=== PATIENT | male | born 1950 | race Caucasian/White ===

== ENCOUNTER 2016-10-20 08:16 | Outpatient (CLI) | payer BC, MEDICARE ==
[~2016-10-20] VITALS: Ht 190.5 cm; Wt 99.8 kg
[~2016-10-20 08:16] MED LIST: BUPR300T34 PO; NS 1,000 ML IV SCH; PANT40TA2 PO; RANI300T PO; VALS320T3 PO; ZOLO50TA PO
[2016-10-20] MEDS ORDERED: LIDOCAINE 2% INJ 100 MG/5 ML SDV (FOR ANES.) As Ordered ONE (08:46)
[2016-10-20] MEDS ORDERED: PROPOFOL 200 MG/20 ML VIAL As Ordered ONE (08:46)
--- NOTE | 2016-10-20 09:41 | ROOR ---
Patient Name: Kory Russell Procedure Date: 10/20/2016 9:29 AM Date of : 1950 Age: 66 Room: [id number] Gender: Male Note Status: Finalized Procedure: Upper GI endoscopy Indications: Surveillance procedure, Surveillance for malignancy due to personal history of Gutierrez's esophagus Providers: Kristopher ROJAS MD Referring MD: SHIRIN CARUSO JR, MD Requesting Provider: Medicines: Monitored Anesthesia Care Complications: No immediate complications. Procedure: Pre-Anesthesia Assessment: - The heart rate, respiratory rate, oxygen saturations, blood pressure, adequacy of pulmonary ventilation, and response to care were monitored throughout the procedure. The Endoscope was introduced through the mouth, and advanced to the second part of duodenum. The upper GI endoscopy was accomplished without difficulty. The patient tolerated the procedure well. Findings: Small Hiatal Hernia. The Z-line was variable. This was biopsied with a cold forceps for histology. The exam was otherwise without abnormality. Impression: - Small Hiatal Hernia. - Z-line variable. Biopsied. - The examination was otherwise normal. Recommendation: - Continue present medications. - The barretts esophagus (if any) is very minimal at best. I suggest follow up on this only on a PRN basis. Kristopher Rojas MD Kristopher ROJAS MD 10/20/2016 9:41:37 AM This report has been signed electronically. Number of Addenda: 0 Note Initiated On: 10/20/2016 9:29 AM Estimated Blood Loss: Estimated blood loss: none.
--- NOTE | 2016-10-20 10:00 | ROOR ---
Patient Name: Kory Russell Procedure Date: 10/20/2016 9:29 AM Date of : 1950 Age: 66 Room: [facility] Gender: Male Note Status: Finalized Procedure: Colonoscopy Indications: High risk colon cancer surveillance: Personal history of colonic polyps, Last colonoscopy: July 2011 Providers: Kristopher NICOLE MD Referring MD: SHIRIN CARUSO JR, MD Requesting Provider: Medicines: Monitored Anesthesia Care Complications: No immediate complications. Procedure: Pre-Anesthesia Assessment: - The heart rate, respiratory rate, oxygen saturations, blood pressure, adequacy of pulmonary ventilation, and response to care were monitored throughout the procedure. The Colonoscope was introduced through the anus and advanced to the cecum, identified by appendiceal orifice and ileocecal valve. The colonoscopy was performed without difficulty. The patient tolerated the procedure well. The quality of the bowel preparation was good. Findings: The perianal and digital rectal examinations were normal. Two sessile polyps were found in the ascending colon. The polyps were diminutive in size. A few medium-mouthed diverticula were found in the sigmoid colon. Small Internal Hemorrhoids. The exam was otherwise without abnormality on direct and retroflexion views. Impression: - Two diminutive polyps in the ascending colon. - Mild diverticulosis in the sigmoid colon. - Small Internal Hemorrhoids. - The examination was otherwise normal on direct and retroflexion views. - No specimens collected. Recommendation: - Repeat colonoscopy in 5 years for surveillance. Kristopher Nicole MD Kristopher NICOLE MD 10/20/2016 9:59:51 AM This report has been signed electronically. Number of Addenda: 0 Note Initiated On: 10/20/2016 9:29 AM Estimated Blood Loss: Estimated blood loss: none.
[2016-10-20 10:17] VITALS: BP 136/71
== END 2016-10-20 10:30 ==
LOC: M OPP 08:16
PROVIDERS: ATTEND Internal Medicine Gastroenterology
DX: Z12.11 Encounter for screening for malignant neoplasm of colon (principal); Z86.010 Personal history of colon polyps; D12.2 Benign neoplasm of ascending colon; K57.30 Diverticulosis of large intestine without perforation or abscess without bleeding; K22.70 Barrett's esophagus without dysplasia; K22.8 Other specified diseases of esophagus; K44.9 Diaphragmatic hernia without obstruction or gangrene; I10 Essential (primary) hypertension; F41.9 Anxiety disorder, unspecified; F32.9 Major depressive disorder, single episode, unspecified; G47.30 Sleep apnea, unspecified; Z79.899 Other long term (current) drug therapy

== ENCOUNTER → 2017-05-03 | Outpatient (REF) | payer BC, MEDICARE ==
[~2017-05-03] MED LIST changes: -NS 1,000 ML IV SCH
[2017-05-07 00:06] LABS: Lyme Disease IgG Ab 18 kDa Ban Absent (.); Lyme Disease IgG Ab 23 kDa Ban Absent (.); Lyme Disease IgG Ab 28 kDa Ban Absent (.); Lyme Disease IgG Ab 30 kDa Ban Present (.); Lyme Disease IgG Ab 39 kDa Ban Absent (.); Lyme Disease IgG Ab 41 kDa Ban Absent (.); Lyme Disease IgG Ab 45 kDa Ban Absent (.); Lyme Disease IgG Ab 58 kDa Ban Absent (.); Lyme Disease IgG Ab 66 kDa Ban Present (.); Lyme Disease IgG Ab 93 kDa Ban Absent (.); Lyme Disease IgG West Blot Int Negative (.); Lyme Disease IgG/IgM Antibodie <0.91 ISR (0.00-0.90); Lyme Disease IgM Ab 23 kDa Ban Absent (.); Lyme Disease IgM Ab 39 kDa Ban Absent (.); Lyme Disease IgM Ab 41 kDa Ban Absent (.); Lyme Disease IgM Ab Quantitati 0.99 index (0.00-0.79); Lyme Disease IgM West Blot Int Negative (.)
== END ==
LOC: M LAB REF 17:43
PROVIDERS: ATTEND Nurse Practitioner Adult Health
DX: R53.83 Other fatigue (principal)

== ENCOUNTER → 2019-08-29 | Outpatient (REF) | payer BC, MEDICARE ==
[~2019-08-29] MED LIST changes: -BUPR300T34 PO; +BUPR300T92 PO; -PANT40TA2 PO; +PANT40TA3 PO
== END ==
LOC: M LAB REF 16:20
PROVIDERS: ATTEND Nurse Practitioner Adult Health
DX: R07.89 Other chest pain (principal)

== ENCOUNTER → 2020-06-21 | Outpatient (CLI) | payer SELFPAY ==
[~2020-06-21] MED LIST changes: +PANT40TA29 PO; -PANT40TA3 PO
== END ==
LOC: M LABSMTC 13:09
PROVIDERS: ATTEND Pediatrics
DX: Z20.828 Contact with and (suspected) exposure to other viral communicable diseases (principal)

== ENCOUNTER → 2020-10-10 | Outpatient (CLI) | payer MEDICARE, SELFPAY ==
[~2020-10-10] MED LIST changes: +ALPR0.25 PO; +AMLO1TAB25 PO; +CETI-36 PO; +DOXA1TAB42 PO; +FAMO40TA3 PO; +FLEC1TAB PO; +METO1TAB87 PO; +NITR0.4S14 PO; +XARE20TA PO
== END ==
LOC: M LABSMTC 09:57
PROVIDERS: ATTEND Anesthesiology
DX: Z01.812 Encounter for preprocedural laboratory examination (principal)

== ENCOUNTER 2020-10-15 08:33 | Day surgery (SDC) | payer MEDICARE ==
[~2020-10-15] VITALS: Ht 188 cm; Wt 97.4 kg
[~2020-10-15 08:33] MED LIST changes: +LIDOCAINE 2% 100MG/5ML SDV (FOR ANES.) As Ordered ONE; +propofoL 200 MG/20 ML VIAL As Ordered ONE
[2020-10-15] MEDS ORDERED: NS 1,000 ML IV ONE (09:50)
--- NOTE | 2020-10-15 10:01 | ROOR ---
Patient Name: Kory Russell Procedure Date: 10/15/2020 9:43 AM Date of : 1950 Age: 70 Room: [facility] Gender: Male Note Status: Finalized Procedure: Upper GI endoscopy Indications: Surveillance for malignancy due to personal history of Gutierrez's esophagus Providers: Kristopher ROJAS MD Referring MD: SHIRIN CARUSO JR, MD Requesting Provider: Medicines: Monitored Anesthesia Care Complications: No immediate complications. Procedure: Pre-Anesthesia Assessment: - The heart rate, respiratory rate, oxygen saturations, blood pressure, adequacy of pulmonary ventilation, and response to care were monitored throughout the procedure. The Endoscope was introduced through the mouth, and advanced to the second part of duodenum. The upper GI endoscopy was accomplished without difficulty. The patient tolerated the procedure well. Findings: The Z-line was variable and was found 42 cm from the incisors. This was biopsied with a cold forceps for histology. The esophagus was normal. The stomach was normal. The examined duodenum was normal. Impression: - Z-line variable, 42 cm from the incisors. Biopsied. - Normal esophagus. - Normal stomach. - Normal examined duodenum. Recommendation: - Continue present medications. - Repeat upper endoscopy in 3 years for surveillance. Procedure Code(s): --- Professional --- 79524, Esophagogastroduodenoscopy, flexible, transoral; with biopsy, single or multiple Diagnosis Code(s): --- Professional --- K22.70, Gutierrez's esophagus without dysplasia K22.8, Other specified diseases of esophagus CPT copyright 2019 [employer]. All rights reserved. The codes documented in this report are preliminary and upon underwriting specialist review may be revised to meet current compliance requirements. Kristopher Rojas MD Kristopher ROJAS MD 10/15/2020 10:01:29 AM Electronically signed by Kristopher ROJAS MD Number of Addenda: 0 Note Initiated On: 10/15/2020 9:43 AM Estimated Blood Loss: Estimated blood loss: none.
--- NOTE | 2020-10-15 10:28 | ROOR ---
Patient Name: Kory Russell Procedure Date: 10/15/2020 9:44 AM Date of : 1950 Age: 70 Room: [facility] Gender: Male Note Status: Finalized Procedure: Colonoscopy Indications: High risk colon cancer surveillance: Personal history of colonic polyps, Last colonoscopy: October 2016 Providers: Kristopher NICOLE MD Referring MD: SHIRIN CARUSO JR, MD Requesting Provider: Medicines: Monitored Anesthesia Care Complications: No immediate complications. Procedure: Pre-Anesthesia Assessment: - The heart rate, respiratory rate, oxygen saturations, blood pressure, adequacy of pulmonary ventilation, and response to care were monitored throughout the procedure. The Colonoscope was introduced through the anus and advanced to the cecum, identified by appendiceal orifice and ileocecal valve. The colonoscopy was performed without difficulty. The patient tolerated the procedure well. The quality of the bowel preparation was fair. Findings: The perianal and digital rectal examinations were normal. Two sessile polyps were found in the ileocecal valve. The polyps were diminutive in size. These polyps were removed with a jumbo cold forceps. Resection and retrieval were complete. A 5 mm polyp was found in the sigmoid colon. The polyp was sessile. The polyp was removed with a jumbo cold forceps. Resection and retrieval were complete. Multiple medium-mouthed diverticula were found in the sigmoid colon and transverse colon. Internal hemorrhoids were found during retroflexion. The hemorrhoids were moderate. The exam was otherwise without abnormality on direct and retroflexion views. Impression: - Preparation of the colon was fair. - Two diminutive polyps at the ileocecal valve, removed with a jumbo cold forceps. Resected and retrieved. - One 5 mm polyp in the sigmoid colon, removed with a jumbo cold forceps. Resected and retrieved. - Diverticulosis in the sigmoid colon and in the transverse colon. - Internal hemorrhoids. - The examination was otherwise normal on direct and retroflexion views. Recommendation: - Repeat colonoscopy in 5 years for surveillance. - Resume Xarelto (rivaroxaban) at prior dose tomorrow. Procedure Code(s): --- Professional --- 74070, Colonoscopy, flexible; with biopsy, single or multiple Diagnosis Code(s): --- Professional --- K57.30, Diverticulosis of large intestine without perforation or abscess without bleeding K64.8, Other hemorrhoids Z86.010, Personal history of colonic polyps K63.5, Polyp of colon CPT copyright 2019 [employer]. All rights reserved. The codes documented in this report are preliminary and upon medical records coder review may be revised to meet current compliance requirements. Kristopher Nicole MD Kristopher NICOLE MD 10/15/2020 10:28:27 AM Electronically signed by Kristopher NICOLE MD Number of Addenda: 0 Note Initiated On: 10/15/2020 9:44 AM Estimated Blood Loss: Estimated blood loss: none.
[2020-10-15 10:55] VITALS: BP 148/66
== END 2020-10-15 11:13 | disposition home or self-care (01) ==
LOC: M OPP 08:33
PROVIDERS: ATTEND Internal Medicine Gastroenterology
DX: Z12.11 Encounter for screening for malignant neoplasm of colon (principal); Z86.010 Personal history of colon polyps; Z80.0 Family history of malignant neoplasm of digestive organs; K63.5 Polyp of colon; K57.30 Diverticulosis of large intestine without perforation or abscess without bleeding; K64.8 Other hemorrhoids; K22.8 Other specified diseases of esophagus; K22.70 Barrett's esophagus without dysplasia; G47.30 Sleep apnea, unspecified; Z79.899 Other long term (current) drug therapy; Z87.891 Personal history of nicotine dependence

== ENCOUNTER → 2021-08-15 | Outpatient (REF) ==
[~2021-08-15] MED LIST changes: -LIDOCAINE 2% 100MG/5ML SDV (FOR ANES.) As Ordered ONE; -propofoL 200 MG/20 ML VIAL As Ordered ONE
== END ==
LOC: M LABSMTC 12:16
PROVIDERS: ATTEND Pediatrics
DX: Z11.52 Encounter for screening for COVID-19 (principal)

== ENCOUNTER → 2021-09-02 | Outpatient (CLI) | payer MEDICARE ==
[2021-09-02 17:04] LABS: BASO % 0.5 % (0.0-1.0); EOS # 0.2 10^3/uL (0.0-0.5); EOS % 1.9 % (0.0-3.0); HEMATOCRIT 36.8 % (42.0-52.0); HEMOGLOBIN 12.9 g/dl (13.5-17.5); LYMPH # 1.6 10^3/uL (1.5-5.0); LYMPH % 20.5 % (24.0-44.0); MEAN CORPUSCULAR HEMOGLOBIN 33.6 pg (27.0-33.0); MEAN CORPUSCULAR HGB CONC 35.1 g/dl (32.0-36.5); MEAN CORPUSCULAR VOLUME 95.8 fl (80.0-96.0); MONO # 0.7 10^3/uL (0.0-0.8); MONO % 8.9 % (2.0-8.0); NEUTROPHILS # 5.4 10^3/uL (1.5-8.5); NEUTROPHILS % 67.7 % (36.0-66.0); PLATELET COUNT, AUTOMATED 222 10^3/uL (150-450); RED BLOOD COUNT 3.84 10^6/uL (4.30-6.10)
[2021-09-02 17:07] LABS: CRYSTALS, BODY FLUID NONE SEEN (NONE SEEN); SOURCE, BODY FLUID CRYSTALS LFT KNEE
[2021-09-02 17:12] LABS: SOURCE, BODY FLUID LFT KNEE; SYNOVIAL FLUID COLOR YELLOW (COLORLESS)
[2021-09-02 17:22] LABS: C REACTIVE PROTEIN QUANTITATIV 0.63 MG/DL (0.00-0.30); RHEUMATOID FACTOR QUANT < 10.0 IU/ML (<15.0); URIC ACID 6.9 MG/DL (3.5-7.2)
[2021-09-02 17:31] LABS: ERYTHROCYTE SEDIMENTATION RATE 9 mm/hr (0-20)
[2021-09-02 18:14] LABS: SOURCE, BODY FLUID GLUCOSE LFT KNEE
[2021-09-02 19:21] LABS: MUCIN CLOT TEST 3+ (4+)
[2021-09-05 08:47] LABS: BODY FLUID RHEUMATOID SCREEN NEGATIVE (NEGATIVE)
[2021-09-05 16:11] LABS: Lyme Disease IgG/IgM Antibodie <0.91 ISR (0.00-0.90); Lyme Disease IgM Ab Quantitati <0.80 index (0.00-0.79)
== END ==
LOC: M PLALAB 14:46
PROVIDERS: ATTEND Orthopaedic Surgery
DX: M17.12 Unilateral primary osteoarthritis, left knee (principal)

== ENCOUNTER → 2021-10-07 | Outpatient (CLI) | payer MEDICARE | LOC: M RAD 07:32 | PROVIDERS: ATTEND Nurse Practitioner Adult Health | DX: M17.0 Bilateral primary osteoarthritis of knee (principal); M19.072 Primary osteoarthritis, left ankle and foot | CPT/HCPCS: 78306; A9503 ==

== ENCOUNTER → 2021-10-10 | Outpatient (CLI) | payer MEDICARE | LOC: M PLARAD 15:27 | PROVIDERS: ATTEND Nurse Practitioner Adult Health | DX: R91.1 Solitary pulmonary nodule (principal) | CPT/HCPCS: 78815; A9552 ==

== ENCOUNTER 2023-02-26 11:27 | Emergency (ER) | payer MEDICARE ==
[~2023-02-26] VITALS: Ht 188 cm; Wt 99.2 kg
[2023-02-26] MEDS ORDERED: CLOP75TA99 PO (11:43)
[2023-02-26 12:59] LABS: BASO # 0.1 10^3/uL (0.0-0.2); BASO % 0.5 % (0.0-1.0); EOS # 0.1 10^3/uL (0.0-0.5); EOS % 1.1 % (0.0-3.0); HEMATOCRIT 35.7 % (42.0-52.0); LYMPH # 1.6 10^3/uL (1.5-5.0); LYMPH % 14.6 % (24.0-44.0); MEAN CORPUSCULAR HEMOGLOBIN 32.9 pg (27.0-33.0); MEAN CORPUSCULAR HGB CONC 36.4 g/dl (32.0-36.5); MEAN CORPUSCULAR VOLUME 90.4 fl (80.0-96.0); MONO # 1.2 10^3/uL (0.0-0.8); NEUTROPHILS # 7.9 10^3/uL (1.5-8.5); NEUTROPHILS % 72.3 % (36.0-66.0); PLATELET COUNT, AUTOMATED 210 10^3/uL (150-450); RED BLOOD COUNT 3.95 10^6/uL (4.30-6.10)
[2023-02-26 13:16] LABS: INR 1.14; PROTHROMBIN TIME 14.3 SECONDS (12.5-14.5)
[2023-02-26 13:17] LABS: PARTIAL THROMBOPLASTIN TIME 32.3 SECONDS (24.8-34.2)
[2023-02-26 13:23] LABS: ERYTHROCYTE SEDIMENTATION RATE 12 mm/hr (0-20)
[2023-02-26 13:28] LABS: CK-MB VALUE MASS 1.2 NG/ML (<3.6); LIPASE 30 U/L (12-53)
[2023-02-26 13:30] LABS: ALKALINE PHOSPHATASE 58 U/L (46-116); ALT/SGPT 32 U/L (7.0-40); AST/SGOT 24 U/L (<34); BILIRUBIN,DIRECT 0.5 MG/DL (<0.4); BILIRUBIN,TOTAL 1.7 MG/DL (0.3-1.2); BLOOD UREA NITROGEN 13 MG/DL (9-23); CALCIUM LEVEL 9.2 MG/DL (8.3-10.6); CARBON DIOXIDE LEVEL 28 MMOL/L (20-31); CHLORIDE LEVEL 98 MMOL/L (98-107); CREATININE FOR GFR 0.78 MG/DL (0.70-1.30); GLOMERULAR FILTRATION RATE > 60.0 (>42); GLUCOSE, FASTING 118 MG/DL (74-106); POTASSIUM SERUM 3.6 MMOL/L (3.5-5.1); SODIUM LEVEL 136 MMOL/L (136-145); TOTAL PROTEIN 6.7 G/DL (5.7-8.2)
[2023-02-26 13:32] LABS: FREE T4 1.21 NG/DL (0.89-1.76); THYROID STIMULATING HORMONE 2.129 uIU/ML (0.55-4.78)
[2023-02-26 13:34] LABS: CPK CREATINE PHOSPHOKINASE 76 U/L (46-171); MB/CK RELATIVE INDEX 1.57 (< OR =4)
[2023-02-26 14:22] LABS: RSV AMPLIFICATION NEGATIVE (NEGATIVE)
[2023-02-26 14:30] LABS: CK-MB VALUE MASS < 1.0 NG/ML (<3.6)
[2023-02-26 14:35] LABS: CPK CREATINE PHOSPHOKINASE 69 U/L (46-171); MB/CK RELATIVE INDEX 1.44 (< OR =4)
[2023-02-26] MEDS ORDERED: ISOVUE-370 76% 100ML VIAL As Ordered ONE (15:14)
[2023-02-26] MEDS ORDERED: KETOROLAC 30 MG/ML 1ML VIAL IV ONE (18:55)
[2023-02-26 19:15] VITALS: O2SAT 98
[2023-02-26] MEDS ORDERED: CLOPIDOGREL 75 MG TAB PO ONE (19:15)
[2023-02-26] MEDS ORDERED: ASPIRIN 81MG ENTERIC TABLET PO ONE (19:15)
[2023-02-26] MEDS ORDERED: KETO10TAB PO (19:18)
[2023-02-26 19:30] VITALS: BP 167/82; TEMP 98.6
== END 2023-02-26 19:58 | disposition home or self-care (01) ==
LOC: M ED 11:27
DX: R07.89 Other chest pain (principal); I48.91 Unspecified atrial fibrillation; I10 Essential (primary) hypertension; K21.9 Gastro-esophageal reflux disease without esophagitis; F32.A Depression, unspecified; K59.00 Constipation, unspecified; Z87.891 Personal history of nicotine dependence; Z79.899 Other long term (current) drug therapy
CPT/HCPCS: 71045; 71275; 80048; 80076; 82550; 82553; 83690; 83880; 84439; 84443; 84484; 85025; 85610; 85652; 85730; 86140; 87631; 93005; 93041; 93306; 94760; 96374; 99285; J1885; Q9967

== ENCOUNTER → 2024-03-18 | Outpatient (REF) | payer MEDICARE ==
[~2024-03-18] MED LIST changes: +BUPR-597 PO; -BUPR300T92 PO; +CLOP75TA99 PO; +KETO10TAB PO
[2024-03-19 17:27] LABS: FOLATE > 24.0 NG/ML (>5.4); VITAMIN B12 LEVEL 519 PG/ML (211-911)
== END ==
LOC: M LAB REF 16:15
PROVIDERS: ATTEND Internal Medicine
DX: D64.9 Anemia, unspecified (principal)

== ENCOUNTER → 2024-08-18 | Outpatient (REF) | payer MEDICARE | LOC: M LAB REF 20:34 | PROVIDERS: ATTEND Physician Assistant Medical | DX: R05.9 Cough, unspecified (principal) ==

== ENCOUNTER 2024-11-11 11:20 | Day surgery (SDC) | payer MEDICARE ==
[~2024-11-11] VITALS: Ht 188 cm; Wt 97.0 kg
[~2024-11-11 11:20] MED LIST changes: +ALL10TAB3 PO; +ALPR0.5T3 PO; -BUPR-597 PO; +BUPR-71 PO; +BUPR-766 PO; +COQ1100C4 PO; +ECOT81TA5 PO; +EQL50TAB2 PO; +GLYCOPYRROLATE INJ 0.2 MG/ML 2 ML VIAL As Ordered ONE; +LIDOCAINE 2% 100MG/5ML SDV (FOR ANES.) As Ordered ONE; +OMEG10002 PO; +VALS1TAB68 PO; +VITA100093 PO; +fentaNYL 100 MCG/2 ML INJECTION As Ordered ONE; +propofoL 200 MG/20 ML VIAL As Ordered ONE
[2024-11-11 13:52] VITALS: TEMP 97.8
[2024-11-11 14:15] VITALS: BP 147/71; O2SAT 97
== END 2024-11-11 14:35 | disposition home or self-care (01) ==
LOC: M OPP 11:20
PROVIDERS: ATTEND Internal Medicine Gastroenterology
DX: K57.30 Diverticulosis of large intestine without perforation or abscess without bleeding (principal); K64.8 Other hemorrhoids; R19.4 Change in bowel habit; K22.70 Barrett's esophagus without dysplasia; K29.71 Gastritis, unspecified, with bleeding; K21.00 Gastro-esophageal reflux disease with esophagitis, without bleeding; K22.89 Other specified disease of esophagus; I48.91 Unspecified atrial fibrillation; G47.30 Sleep apnea, unspecified; Z79.899 Other long term (current) drug therapy
CPT/HCPCS: 43239; 45378; 88305; J1596; J3010

== ENCOUNTER → 2025-04-08 | Outpatient (CLI) | payer MEDICARE ==
[~2025-04-08] MED LIST changes: -EQL50TAB2 PO; -GLYCOPYRROLATE INJ 0.2 MG/ML 2 ML VIAL As Ordered ONE; +ISOVUE-370 76% 100 ML VIAL As Ordered ONE; -LIDOCAINE 2% 100MG/5ML SDV (FOR ANES.) As Ordered ONE; +VITA1TAB82 PO; -fentaNYL 100 MCG/2 ML INJECTION As Ordered ONE; -propofoL 200 MG/20 ML VIAL As Ordered ONE
== END ==
LOC: M RAD 15:25
PROVIDERS: ATTEND Urology
DX: D49.4 Neoplasm of unspecified behavior of bladder (principal)
CPT/HCPCS: 74178; 82565; Q9967

== ENCOUNTER → 2025-04-20 | Outpatient (REF) | payer MEDICARE ==
[~2025-04-20] MED LIST changes: -ISOVUE-370 76% 100 ML VIAL As Ordered ONE
== END ==
LOC: M LAB REF 16:51
DX: B34.9 Viral infection, unspecified (principal)

== ENCOUNTER → 2025-04-28 | Outpatient (CLI) | payer MEDICARE ==
[~2025-04-28] MED LIST changes: +OMEP40CA4 PO; +SPIR-10; +TAMS-18 PO
[2025-04-28 15:17] LABS: PLATELET COUNT, AUTOMATED 212 10^3/uL (150-450)
[2025-04-28 15:42] LABS: CALCIUM LEVEL 8.6 MG/DL (8.3-10.6); CARBON DIOXIDE LEVEL 26 MMOL/L (20-31); CHLORIDE LEVEL 101 MMOL/L (98-107); CREATININE FOR GFR 0.80 MG/DL (0.70-1.30); GLOMERULAR FILTRATION RATE > 90.0 (>42); POTASSIUM SERUM 4.6 MMOL/L (3.5-5.1); SODIUM LEVEL 135 MMOL/L (136-145)
== END ==
LOC: M RAD 14:24
PROVIDERS: ATTEND Urology
DX: Z01.818 Encounter for other preprocedural examination (principal); D49.4 Neoplasm of unspecified behavior of bladder; N39.0 Urinary tract infection, site not specified

== ENCOUNTER 2025-05-08 06:03 | Day surgery (SDC) | payer MEDICARE ==
[~2025-05-08] VITALS: Ht 188 cm; Wt 97.0 kg
[2025-05-08] MEDS: LR 1,000 ML IV SCH (06:45)
[2025-05-08] MEDS ORDERED: dexAMETHasone 4 MG/ML 1 ML VIAL As Ordered ONE (06:55)
[2025-05-08] MEDS ORDERED: SUGAMMADEX SODIUM 500 MG/5 ML VIAL As Ordered ONE (06:55)
[2025-05-08] MEDS ORDERED: ONDANSETRON 4MG/2ML VIAL As Ordered ONE (06:55)
[2025-05-08] MEDS ORDERED: LIDOCAINE 2% 100 MG/5 ML SDV (FOR ANES.) As Ordered ONE (06:55)
[2025-05-08] MEDS ORDERED: ROCURONIUM BROMIDE 50MG/5ML VIAL As Ordered ONE (06:55)
[2025-05-08] MEDS ORDERED: MIDAZOLAM INJ 2 MG/2 ML VIAL As Ordered ONE (08:32)
[2025-05-08] MEDS: ceFAZolin SOD 2 GM IV ONCE IV ONE (08:54)
[2025-05-08] MEDS ORDERED: ACETAMINOPHEN 1000MG/100ML IV BAG As Ordered ONE (09:01)
[2025-05-08] MEDS ORDERED: ONDANSETRON 4MG/2ML VIAL IV PRN (09:30)
[2025-05-08] MEDS ORDERED: LR 1,000 ML IV SCH (09:30)
[2025-05-08] MEDS ORDERED: HYDROMORPHONE HCL 0.5 MG/0.5 ML SYRINGE IV PRN (09:30)
[2025-05-08] MEDS ORDERED: CIPR-249 PO (09:51)
[2025-05-08 11:01] VITALS: BP 127/62; TEMP 97.7; O2SAT 98
== END 2025-05-08 11:04 | disposition home or self-care (01) ==
LOC: M SDC 06:03
PROVIDERS: ATTEND Urology
DX: C67.9 Malignant neoplasm of bladder, unspecified (principal); N35.811 Other urethral stricture, male, meatal; R33.8 Other retention of urine; I10 Essential (primary) hypertension; I48.91 Unspecified atrial fibrillation; G47.30 Sleep apnea, unspecified; R32 Unspecified urinary incontinence; Z79.899 Other long term (current) drug therapy; Z79.82 Long term (current) use of aspirin
CPT/HCPCS: 52234; 88305; J0131; J0688; J1100; J2250; J2405; J3010